=== PATIENT | male | born 1960 | race Caucasian/White ===

== ENCOUNTER 2019-09-09 07:21 | Outpatient (CLI) | payer OTHER | END 2019-09-09 07:42 | disposition home or self-care (01) | LOC: LAB 07:21 | DX: E03.8 Other specified hypothyroidism (principal); N39.0 Urinary tract infection, site not specified; E78.49 Other hyperlipidemia; N40.1 Benign prostatic hyperplasia with lower urinary tract symptoms; D50.0 Iron deficiency anemia secondary to blood loss (chronic) ==

== ENCOUNTER 2019-09-11 13:51 | Outpatient (CLI) | payer OTHER | END 2019-09-11 14:02 | disposition home or self-care (01) | LOC: NUCLEAR 13:51 | DX: M81.0 Age-related osteoporosis without current pathological fracture (principal) ==

== ENCOUNTER 2021-06-07 06:25 | Outpatient (CLI) | payer OTHER | END 2021-06-07 06:26 | disposition home or self-care (01) | LOC: LAB 06:25 | PROVIDERS: ATTEND Urology | DX: N39.0 Urinary tract infection, site not specified (principal); E78.49 Other hyperlipidemia; N40.1 Benign prostatic hyperplasia with lower urinary tract symptoms ==

== ENCOUNTER 2021-06-07 07:26 | Outpatient (CLI) | payer OTHER | END 2021-06-07 07:37 | disposition home or self-care (01) | LOC: SONOGRAMA 07:26 | PROVIDERS: ATTEND Urology | DX: N20.0 Calculus of kidney (principal); K76.89 Other specified diseases of liver ==